=== PATIENT | female | born 1970 | race Caucasian/White ===

== ENCOUNTER 2020-09-17 07:56 | Day surgery (SDC) | payer OTHER ==
[~2020-09-17] VITALS: Ht 172.7 cm; Wt 92.8 kg
[~2020-09-17 07:56] MED LIST: ALBU90OI INH; Allegra-D 12 H1 EACH PO; EXCEDRIN MIGRAINE PO; LEVSOD125 PO; METCAR750 PO; SUMA6I PO; Sudogest120 MG PO; Tylenol325 MG PO
--- NOTE | 2020-09-17 14:00 | NUR ---
09/17/20 1400 ZAYNAB MIRANDA DIVERTICULOSIS AND HIGH FIBER DIET PACKETS GIVEN TO PT UPON DC PER DR. GUTIERREZ
== END 2020-09-17 09:45 | disposition home or self-care (01) ==
LOC: ORSCSDS 07:56
PROVIDERS: Internal Medicine Gastroenterology
PROC: 0DJD8ZZ Inspection of Lower Intestinal Tract, Via Natural or Artificial Opening Endoscopic (ICD-10-PCS; principal; 2020-09-17 09:00)
DX: Z12.11 Encounter for screening for malignant neoplasm of colon (principal); K57.30 Diverticulosis of large intestine without perforation or abscess without bleeding; K64.1 Second degree hemorrhoids; J45.909 Unspecified asthma, uncomplicated; E03.9 Hypothyroidism, unspecified; Z79.899 Other long term (current) drug therapy
CPT/HCPCS: J2704; J7120